=== PATIENT | female | born 1965 | race Caucasian/White ===

== ENCOUNTER 2017-04-17 17:57 | Emergency (ER) | payer OTHER ==
[~2017-04-17] VITALS: Ht 165.1 cm; Wt 80.0 kg
[~2017-04-17 17:57] MED LIST: FISH OIL OR; LORTAB5 PO; MULTI VIT OR; TYLENOL325 MG OR
[2017-04-17 18:39] LABS: HEMATOCRIT 39.8 % (37.0-47.0); MEAN CORPUSCULAR HGB 29.5 pG CALC (26.0-32.0); MEAN CORPUSCULAR HGB CONC 35.2 g/L CALC (32.0-36.0); RED BLOOD COUNT 4.74 mill/uL (4.20-5.60); RED CELL DISTRI WIDTH 12.8 % (11.5-15.5)
[2017-04-17 18:51] LABS: ALBUMIN 4.5 g/dL (3.2-5.0); ALKALINE PHOSPHATASE 98 u/l (38-126); ANION GAP 17 (6-22 (CALC)); BILIRUBIN, TOTAL 1.3 mg/dL (0.0-1.4); BUN 15 mg/dL (7-17); BUN/CREATININE RATIO 18 (12-20 (CALC)); CALCIUM 9.7 mg/dL (8.4-10.2); CARBON DIOXIDE 20 mmol/l (22-30); CHLORIDE 98 mmol/l (95-108); CREATININE 0.9 mg/dL (0.5-1.0); ETHYL ALCOHOL 0 mg/dl (0-30); GFR > 60 ML/MIN (>=60 (CALC)); GFR FOR AFR.AMER. > 60 ML/MIN (>=60 (CALC)); GLUCOSE 109 mg/dL (65-105); POTASSIUM 3.6 mmol/l (3.5-5.1); SGOT/AST 26 u/l (14-36); SGPT/ALT 37 u/l (9-52); SODIUM 132 mmol/l (137-146); TOTAL PROTEIN 7.7 g/dL (6.3-8.2)
[2017-04-17 19:03] LABS: IMMATURE GRANULOCYTES 0.2 % (0.0-1.0); MYOGLOBIN 53 ng/mL (0 - 62); NEUT# 4.43 thou/uL (2.00-7.15)
[2017-04-17 20:40] LABS: URINE BILIRUBIN - DIPSTICK NEGATIVE (NEGATIVE); URINE BLOOD DIPSTICK NEGATIVE (NEGATIVE); URINE CLARITY CLEAR; URINE COLOR YELLOW; URINE GLUCOSE - DIPSTICK NEGATIVE (NEGATIVE); URINE KETONE NEGATIVE (NEGATIVE); URINE LEUK ESTERASE NEGATIVE (NEGATIVE); URINE NITRITE - DIPSTICK NEGATIVE (Negative); URINE PH 5.5 (4.5-8.0); URINE PROTEIN - DIPSTICK NEGATIVE (NEG-TRACE); URINE SPECIFIC GRAVITY <=1.005; URINE UROBILINOGEN - DIPSTICK 0.2 E.U./dL (0.2)
[2017-04-17 20:43] LABS: BARBITURATES NEGATIVE (NEGATIVE); COCAINE NEGATIVE (NEGATIVE); METHADONE NEGATIVE (NEGATIVE); OXCYCODONE NEGATIVE (NEGATIVE); TETRAHYDROCANNABIONOL NEGATIVE (NEGATIVE); TRICYLIC ANTIDEPRESSANTS NEGATIVE (NEGATIVE)
[2017-04-17 23:00] VITALS: BP 110/64
== END 2017-04-17 23:10 | disposition home or self-care (01) | DRG 149 ==
LOC: ED 17:57
PROVIDERS: Emergency Medicine
DX: R42 Dizziness and giddiness (principal); F11.10 Opioid abuse, uncomplicated; R53.1 Weakness

== ENCOUNTER 2017-05-30 17:44 | Emergency (ER) | payer OTHER ==
[~2017-05-30] VITALS: Ht 165.1 cm; Wt 90.9 kg
[2017-05-30 18:47] LABS: PROTHROMBIN TIME 10.5 SECONDS (9.0-12.5)
[2017-05-30 18:51] LABS: ALBUMIN 4.3 g/dL (3.2-5.0); ALKALINE PHOSPHATASE 127 u/l (38-126); ANION GAP 15 (6-22 (CALC)); BILIRUBIN, TOTAL 1.1 mg/dL (0.0-1.4); BUN 8 mg/dL (7-17); BUN/CREATININE RATIO 10 (12-20 (CALC)); CALCIUM 9.3 mg/dL (8.4-10.2); CARBON DIOXIDE 22 mmol/l (22-30); CHLORIDE 100 mmol/l (95-108); CREATININE 0.8 mg/dL (0.5-1.0); GFR > 60 ML/MIN (>=60 (CALC)); GFR FOR AFR.AMER. > 60 ML/MIN (>=60 (CALC)); GLUCOSE 106 mg/dL (65-105); POTASSIUM 3.8 mmol/l (3.5-5.1); SGOT/AST 51 u/l (14-36); SGPT/ALT 40 u/l (9-52); SODIUM 133 mmol/l (137-146); TOTAL PROTEIN 7.8 g/dL (6.3-8.2)
[2017-05-30 18:59] LABS: HEMATOCRIT 36.4 % (37.0-47.0); HEMOGLOBIN 12.3 g/dl (12.0-16.0); IMMATURE GRANULOCYTES 0.6 % (0.0-1.0); MEAN CELL VOLUME 87.3 fL CALC (80.0-100.0); MEAN CORPUSCULAR HGB 29.5 pG CALC (26.0-32.0); MEAN CORPUSCULAR HGB CONC 33.8 g/L CALC (32.0-36.0); NEUT# 1.32 thou/uL (2.00-7.15); RED BLOOD COUNT 4.17 mill/uL (4.20-5.60); RED CELL DISTRI WIDTH 13.2 % (11.5-15.5)
[2017-05-30 19:02] LABS: ETHYL ALCOHOL 0 mg/dl (0-30); MYOGLOBIN 28 ng/mL (0 - 62)
[2017-05-30 19:09] LABS: URINE BILIRUBIN - DIPSTICK NEGATIVE (NEGATIVE); URINE BLOOD DIPSTICK TRACE-INTACT (NEGATIVE); URINE COLOR YELLOW; URINE GLUCOSE - DIPSTICK NEGATIVE (NEGATIVE); URINE KETONE NEGATIVE (NEGATIVE); URINE LEUK ESTERASE NEGATIVE (NEGATIVE); URINE NITRITE - DIPSTICK NEGATIVE (Negative); URINE PROTEIN - DIPSTICK NEGATIVE (NEG-TRACE); URINE UROBILINOGEN - DIPSTICK 0.2 E.U./dL (0.2)
[2017-05-30 19:11] LABS: URINE CLARITY CLEAR
[2017-05-30 19:12] LABS: BARBITURATES NEGATIVE (NEGATIVE); COCAINE NEGATIVE (NEGATIVE); METHADONE NEGATIVE (NEGATIVE); OXCYCODONE POSITIVE (NEGATIVE); TETRAHYDROCANNABIONOL POSITIVE (NEGATIVE); TRICYLIC ANTIDEPRESSANTS NEGATIVE (NEGATIVE)
[2017-05-30 21:28] VITALS: BP 118/62
--- NOTE | 2017-06-03 10:21 | NUR ---
Called patient and discussed preliminary blood culture resultes; one set growing gram neg emerita. Pt states she is feeling fine, no signs/symptoms of infections. Denies fever, malaise, dizziness. She also states she has appointment with PCP on sunday06/05/17. Advised to return to ED if she feels she is having any problems.
== END 2017-05-30 21:29 | disposition left against medical advice (07) | DRG 948 ==
LOC: ED 17:44
PROVIDERS: Emergency Medicine
DX: R41.82 Altered mental status, unspecified (principal); D61.818 Other pancytopenia; B96.89 Other specified bacterial agents as the cause of diseases classified elsewhere; Z91.19 Patient's noncompliance with other medical treatment and regimen; R51 Headache; R42 Dizziness and giddiness; F11.90 Opioid use, unspecified, uncomplicated; F12.90 Cannabis use, unspecified, uncomplicated; F15.90 Other stimulant use, unspecified, uncomplicated

== ENCOUNTER 2018-01-14 10:11 | Emergency (ER) | payer SELFPAY ==
[~2018-01-14] VITALS: Ht 160 cm; Wt 77.0 kg
[2018-01-14] MEDS ORDERED: VOLTAREN1%GEL TOP (10:32)
[2018-01-14] MEDS ORDERED: MOTRIN400 MG PO (10:32)
[2018-01-14] MEDS ORDERED: ASPERCREME LIDOCA41 TOP (10:32)
[2018-01-14 11:32] VITALS: BP 147/96
== END 2018-01-14 12:35 | disposition home or self-care (01) | DRG 563 ==
LOC: ED 10:11
DX: S39.012A Strain of muscle, fascia and tendon of lower back, initial encounter (principal); Y93.89 Activity, other specified; Y92.009 Unspecified place in unspecified non-institutional (private) residence as the place of occurrence of the external cause

== ENCOUNTER 2018-02-24 16:44 | Emergency (ER) | payer MEDICAID ==
[~2018-02-24] VITALS: Ht 160 cm; Wt 80.0 kg
[~2018-02-24 16:44] MED LIST changes: +ASPERCREME LIDOCA41 TOP; +MOTRIN400 MG PO; +VOLTAREN1%GEL TOP
[2018-02-24 17:40] LABS: HEMOGLOBIN 12.1 g/dl (12.0-16.0); IMMATURE GRANULOCYTES 0.3 % (0.0-5.0); MEAN CELL VOLUME 83.3 fL CALC (80.0-100.0); MEAN CORPUSCULAR HGB CONC 33.6 g/L CALC (32.0-36.0); NEUT# 3.84 thou/uL (2.00-7.15); RED BLOOD COUNT 4.32 mill/uL (4.20-5.60); RED CELL DISTRI WIDTH 14.2 % (11.5-15.5)
[2018-02-24 17:51] LABS: BUN 16 mg/dL (7-17); BUN/CREATININE RATIO 30 (12-20 (CALC)); CARBON DIOXIDE 28 mmol/l (22-30); CHLORIDE 102 mmol/l (95-108); CREATININE 0.5 mg/dL (0.5-1.0); GFR > 60 ML/MIN (>=60 (CALC)); GFR FOR AFR.AMER. > 60 ML/MIN (>=60 (CALC)); POTASSIUM 4.1 mmol/l (3.5-5.1)
[2018-02-24 17:55] LABS: ANION GAP 14 (6-22 (CALC)); SODIUM 140 mmol/l (137-146)
[2018-02-24 22:45] VITALS: BP 141/79
== END 2018-02-24 22:45 | disposition short-term general hospital (02) ==
LOC: ED 16:44
PROVIDERS: Family Medicine
DX: M54.6 Pain in thoracic spine (principal); R07.9 Chest pain, unspecified; R11.0 Nausea; F17.210 Nicotine dependence, cigarettes, uncomplicated

== ENCOUNTER 2018-11-23 04:34 | Observation (INO) | payer OTHER ==
[~2018-11-23] VITALS: Ht 160 cm; Wt 87.7 kg
[2018-11-23] VITALS (10 sets, daily range): BP systolic 87–136; BP diastolic 42–85
[2018-11-23 05:11] LABS: MEAN CORPUSCULAR HGB 29.6 pG CALC (26.0-32.0); MEAN CORPUSCULAR HGB CONC 33.2 g/L CALC (32.0-36.0); RED BLOOD COUNT 4.77 mill/uL (4.20-5.60); RED CELL DISTRI WIDTH 12.5 % (11.5-15.5)
[2018-11-23 05:14] LABS: URINE BLOOD DIPSTICK NEGATIVE (NEGATIVE); URINE COLOR YELLOW; URINE GLUCOSE - DIPSTICK NEGATIVE (NEGATIVE); URINE KETONE 15 mg/dL (NEGATIVE); URINE LEUK ESTERASE NEGATIVE (NEGATIVE); URINE NITRITE - DIPSTICK NEGATIVE (Negative); URINE PROTEIN - DIPSTICK NEGATIVE (NEG-TRACE); URINE SPECIFIC GRAVITY >=1.030; URINE UROBILINOGEN - DIPSTICK 0.2 E.U./dL (0.2)
[2018-11-23 05:28] LABS: URINE BILIRUBIN - DIPSTICK NEGATIVE (NEGATIVE)
[2018-11-23 05:34] LABS: HEMATOCRIT 42.5 % (37.0-47.0); HEMOGLOBIN 14.1 g/dl (12.0-16.0); IMMATURE GRANULOCYTES 0.4 % (0.0-5.0); MEAN CELL VOLUME 89.1 fL CALC (80.0-100.0); NEUT# 4.87 thou/uL (2.00-7.15)
[2018-11-23 05:38] LABS: BARBITURATES NEGATIVE (NEGATIVE); COCAINE NEGATIVE (NEGATIVE); METHADONE NEGATIVE (NEGATIVE); TETRAHYDROCANNABIONOL POSITIVE (NEGATIVE); TRICYLIC ANTIDEPRESSANTS POSITIVE (NEGATIVE)
[2018-11-23 05:39] LABS: OXCYCODONE POSITIVE (NEGATIVE)
[2018-11-23 05:51] LABS: ALKALINE PHOSPHATASE 144 u/l (38-126); BILIRUBIN, TOTAL 0.7 mg/dL (0.0-1.4); BUN 20 mg/dL (7-17); BUN/CREATININE RATIO 22 (12-20 (CALC)); CHLORIDE 107 mmol/l (95-108); CREATININE 0.9 mg/dL (0.5-1.0); ETHYL ALCOHOL 0 mg/dl (0-30); GFR > 60 ML/MIN (>=60 (CALC)); GFR FOR AFR.AMER. > 60 ML/MIN (>=60 (CALC)); POTASSIUM 3.4 mmol/l (3.5-5.1); SGOT/AST 34 u/l (14-36); SODIUM 144 mmol/l (137-146); TOTAL PROTEIN 8.6 g/dL (6.3-8.2)
[2018-11-23 05:55] LABS: ANION GAP 18 (6-22 (CALC))
[2018-11-23 05:56] LABS: ALBUMIN 5.3 g/dL (3.2-5.0); CARBON DIOXIDE 22 mmol/l (22-30)
[2018-11-23 06:03] LABS: MYOGLOBIN 117 ng/mL (0 - 62)
[2018-11-24] VITALS: BP 115/70
[2018-11-24 02:00] VITALS: BP 111/71
[2018-11-24 04:00] VITALS: BP 91/52
[2018-11-24 05:13] LABS: HEMATOCRIT 39.9 % (37.0-47.0); HEMOGLOBIN 13.2 g/dl (12.0-16.0); IMMATURE GRANULOCYTES 0.4 % (0.0-5.0); MEAN CELL VOLUME 89.3 fL CALC (80.0-100.0); MEAN CORPUSCULAR HGB 29.5 pG CALC (26.0-32.0); MEAN CORPUSCULAR HGB CONC 33.1 g/L CALC (32.0-36.0); NEUT# 2.2 thou/uL (2.00-7.15); RED BLOOD COUNT 4.47 mill/uL (4.20-5.60); RED CELL DISTRI WIDTH 12.8 % (11.5-15.5)
[2018-11-24 05:39] LABS: ALBUMIN 4.4 g/dL (3.2-5.0); ALKALINE PHOSPHATASE 119 u/l (38-126); AMYLASE 46 u/l (30-110); ANION GAP 14 (6-22 (CALC)); BILIRUBIN, TOTAL 0.5 mg/dL (0.0-1.4); BUN 15 mg/dL (7-17); BUN/CREATININE RATIO 22 (12-20 (CALC)); CARBON DIOXIDE 21 mmol/l (22-30); CHLORIDE 113 mmol/l (95-108); CREATININE 0.7 mg/dL (0.5-1.0); GFR > 60 ML/MIN (>=60 (CALC)); GFR FOR AFR.AMER. > 60 ML/MIN (>=60 (CALC)); LIPASE 85 u/l (23-300); MAGNESIUM 2.4 mg/dL (1.6-2.3); POTASSIUM 3.7 mmol/l (3.5-5.1); SGOT/AST 27 u/l (14-36); SODIUM 144 mmol/l (137-146); TOTAL PROTEIN 7.2 g/dL (6.3-8.2)
[2018-11-24 08:11] VITALS: BP 116/57
[2018-11-24] MEDS ORDERED: DOXYCYCL HYC100 MG PO (11:06)
== END 2018-11-24 11:35 | disposition home or self-care (01) ==
LOC: ED 04:34 → ED-I 06:45 → ED 06:58 → ICU 06:59
PROVIDERS: Emergency Medicine; ADMIT Internal Medicine Nephrology; ATTEND Internal Medicine Nephrology
DX: T40.2X1A Poisoning by other opioids, accidental (unintentional), initial encounter (principal); T43.011A Poisoning by tricyclic antidepressants, accidental (unintentional), initial encounter; T43.621A Poisoning by amphetamines, accidental (unintentional), initial encounter; T40.901A Poisoning by unspecified psychodysleptics [hallucinogens], accidental (unintentional), initial encounter; T40.7X1A Poisoning by cannabis (derivatives), accidental (unintentional), initial encounter; F19.10 Other psychoactive substance abuse, uncomplicated; I10 Essential (primary) hypertension; M54.9 Dorsalgia, unspecified; G89.29 Other chronic pain; J20.9 Acute bronchitis, unspecified; I95.9 Hypotension, unspecified; F41.1 Generalized anxiety disorder; F17.210 Nicotine dependence, cigarettes, uncomplicated

== ENCOUNTER 2019-03-05 01:13 | Emergency (ER) | payer OTHER ==
[~2019-03-05] VITALS: Ht 160 cm; Wt 90.0 kg
[~2019-03-05 01:13] MED LIST changes: +DOXYCYCL HYC100 MG PO
[2019-03-05] MEDS ORDERED: PRAVASTATIN20 MG PO (01:30)
[2019-03-05] MEDS ORDERED: AMITRIPTYLIN25 MG PO (01:30)
[2019-03-05] MEDS ORDERED: BUPROPION HCL150 M2 PO (01:31)
[2019-03-05] MEDS ORDERED: CETIRIZINE10 MG PO (01:31)
[2019-03-05] MEDS ORDERED: AMLODIPINE BESYL5 MG PO (01:32)
[2019-03-05] MEDS ORDERED: TRAZODONE50 MG PO (01:33)
[2019-03-05] MEDS ORDERED: TOPIRAMATE50 MG PO (01:33)
[2019-03-05] MEDS ORDERED: GABAPENTIN100 MG PO (01:34)
[2019-03-05 02:08] LABS: HEMOGLOBIN 11.4 g/dl (12.0-16.0); MEAN CORPUSCULAR HGB 27.6 pG CALC (26.0-32.0); MEAN CORPUSCULAR HGB CONC 33.6 g/L CALC (32.0-36.0); RED BLOOD COUNT 4.13 mill/uL (4.20-5.60); RED CELL DISTRI WIDTH 12.6 % (11.5-15.5)
[2019-03-05 02:08] LABS: URINE BLOOD DIPSTICK TRACE-INTACT (NEGATIVE); URINE COLOR YELLOW; URINE GLUCOSE - DIPSTICK NEGATIVE (NEGATIVE); URINE KETONE NEGATIVE (NEGATIVE); URINE LEUK ESTERASE TRACE (NEGATIVE); URINE PROTEIN - DIPSTICK 100 mg/dL (NEG-TRACE); URINE SPECIFIC GRAVITY 1.015
[2019-03-05 02:17] LABS: URINE BILIRUBIN - DIPSTICK NEGATIVE (NEGATIVE); URINE NITRITE - DIPSTICK POSITIVE (Negative)
[2019-03-05 02:20] LABS: COCAINE NEGATIVE (NEGATIVE)
[2019-03-05 02:21] LABS: METHADONE NEGATIVE (NEGATIVE); TETRAHYDROCANNABIONOL POSITIVE (NEGATIVE); TRICYLIC ANTIDEPRESSANTS POSITIVE (NEGATIVE)
[2019-03-05 02:22] LABS: BARBITURATES NEGATIVE (NEGATIVE); OXCYCODONE POSITIVE (NEGATIVE)
[2019-03-05 02:32] LABS: URINE BACTERIA MODERATE hpf; URINE SQUAMOUS EPITHELIAL CELL FEW EPI/hpf (0-FEW)
[2019-03-05 02:35] LABS: BUN 28 mg/dL (7-17); BUN/CREATININE RATIO 37 (12-20 (CALC)); CARBON DIOXIDE 24 mmol/l (22-30); CREATININE 0.7 mg/dL (0.5-1.0); GFR > 60 ML/MIN (>=60 (CALC)); GFR FOR AFR.AMER. > 60 ML/MIN (>=60 (CALC)); POTASSIUM 3.6 mmol/l (3.5-5.1); TOTAL PROTEIN 6.6 g/dL (6.3-8.2)
[2019-03-05 02:39] LABS: ALBUMIN 2.9 g/dL (3.2-5.0); ALKALINE PHOSPHATASE 354 u/l (38-126); ANION GAP 15 (6-22 (CALC)); BILIRUBIN, TOTAL 1.1 mg/dL (0.0-1.4); CHLORIDE 91 mmol/l (95-108); SGOT/AST 78 u/l (14-36); SODIUM 126 mmol/l (137-146)
[2019-03-05 02:46] LABS: MYOGLOBIN 174 ng/mL (0 - 62)
[2019-03-05 02:55] LABS: HEMATOCRIT 33.9 % (37.0-47.0); IMMATURE GRANULOCYTES 1.4 % (0.0-5.0); MEAN CELL VOLUME 82.1 fL CALC (80.0-100.0); NEUT# 6.23 thou/uL (2.00-7.15)
[2019-03-05 07:27] VITALS: BP 107/64
--- NOTE | 2019-03-06 07:17 | NUR ---
PRELIMINARY CULTURE RESULTS BOTH SETS GROWING GRAM (+) COCCI CALLED TO NATY URIAS AT [facility], WHO REPORTS [facility] HAS ALSO HAD THE SAME RESULTS. NO FOLLOW UP IS NEEDED AT THIS TIME.
== END 2019-03-05 07:27 | disposition short-term general hospital (02) ==
LOC: ED 01:13
PROVIDERS: Emergency Medicine
DX: J85.2 Abscess of lung without pneumonia (principal); M40.294 Other kyphosis, thoracic region; A41.01 Sepsis due to Methicillin susceptible Staphylococcus aureus; B95.61 Methicillin susceptible Staphylococcus aureus infection as the cause of diseases classified elsewhere; R00.0 Tachycardia, unspecified; I95.9 Hypotension, unspecified; R50.9 Fever, unspecified; F17.210 Nicotine dependence, cigarettes, uncomplicated; M54.5 Low back pain

== ENCOUNTER 2019-05-20 09:21 | Emergency (ER) | payer OTHER ==
[~2019-05-20] VITALS: Ht 154.9 cm; Wt 82.0 kg
[~2019-05-20 09:21] MED LIST changes: +AMITRIPTYLIN25 MG PO; +AMLODIPINE BESYL5 MG PO; +BUPROPION HCL150 M2 PO; +CETIRIZINE10 MG PO; +GABAPENTIN100 MG PO; +PRAVASTATIN20 MG PO; +TOPIRAMATE50 MG PO; +TRAZODONE50 MG PO
[2019-05-20 10:35] LABS: HEMATOCRIT 31.1 % (37.0-47.0); IMMATURE GRANULOCYTES 0.7 % (0.0-5.0); MEAN CELL VOLUME 81.8 fL CALC (80.0-100.0); MEAN CORPUSCULAR HGB 23.2 pG CALC (26.0-32.0); MEAN CORPUSCULAR HGB CONC 28.3 g/L CALC (32.0-36.0); NEUT# 10.06 thou/uL (2.00-7.15); RED BLOOD COUNT 3.8 mill/uL (4.20-5.60); RED CELL DISTRI WIDTH 17.8 % (11.5-15.5)
[2019-05-20 10:47] LABS: ALBUMIN 3.5 g/dL (3.2-5.0); ALKALINE PHOSPHATASE 167 u/l (38-126); ANION GAP 17 (6-22 (CALC)); BILIRUBIN, TOTAL 0.7 mg/dL (0.0-1.4); BUN 18 mg/dL (7-17); BUN/CREATININE RATIO 40 (12-20 (CALC)); CARBON DIOXIDE 23 mmol/l (22-30); CHLORIDE 103 mmol/l (95-108); CREATININE 0.5 mg/dL (0.5-1.0); GFR > 60 ML/MIN (>=60 (CALC)); GFR FOR AFR.AMER. > 60 ML/MIN (>=60 (CALC)); LIPASE < 10 u/l (23-300); POTASSIUM 3.9 mmol/l (3.5-5.1); SGOT/AST 20 u/l (14-36); SODIUM 139 mmol/l (137-146); TOTAL PROTEIN 7.7 g/dL (6.3-8.2)
[2019-05-20 10:55] LABS: HEMOGLOBIN 8.8 g/dl (12.0-16.0)
[2019-05-20 12:01] LABS: INTERNATIONAL NORMALIZED RATIO 1.2 RATIO (0.7-1.3); PROTHROMBIN TIME 12.9 SECONDS (9.0-12.5)
[2019-05-20 13:53] VITALS: BP 149/65
--- NOTE | 2019-05-21 08:08 | NUR ---
Preliminary blood culture results growing gram positive cocci in both sets called to Sahara @[facility]. Will fax final results to [facility] tomorrow to [phone].
--- NOTE | 2019-05-23 11:02 | NUR ---
FAXED BLOOD CULTURE RESULTS TO NATY DE LA O AT [facility].
== END 2019-05-20 14:07 | disposition short-term general hospital (02) ==
LOC: ED 09:21
PROVIDERS: Family Medicine
DX: I50.9 Heart failure, unspecified (principal); J18.9 Pneumonia, unspecified organism; F17.200 Nicotine dependence, unspecified, uncomplicated; Z95.1 Presence of aortocoronary bypass graft
CPT/HCPCS: Q9966

== ENCOUNTER 2019-09-12 | Inpatient (IN) | payer OTHER ==
[2019-09-12] VITALS (25 sets, daily range): BP systolic 82–133; BP diastolic 52–84
[~2019-09-12] MED LIST changes: +ALL DAY10 MG PO; +BACLOFEN20 MG PO; +DICLOFENAC50 MG PO; +GABAPENTIN400 M2 PO; +LASIX 80 MG TAB80 MG PO; +PERCOCET1 TA4 PO; +POTASSIUM99 MG PO
--- NOTE | 2019-09-12 03:35 | NUR ---
PATIENT TO ROOM 12 VIA EMS STRETCHER. PATIENT EYES CLOSED, HOLLERING OUT, WHEN ASKED HER NAME SHE CAN ANSWER, UNABLE TO SAY BIRTHDAY. PATIENT UNABLE TO STATE ANY COMPLAINTS OF PAIN, DRUG USE, OR EVENTS LEADING TO HER ER VISIT. PATIENT UNDRESSED INTO A GOWN. PLACED ON MONITOR. AWAITING MD LANGLEY.
[2019-09-12 04:11] LABS: URINE BILIRUBIN - DIPSTICK NEGATIVE (NEGATIVE); URINE BLOOD DIPSTICK MODERATE (NEGATIVE); URINE COLOR YELLOW; URINE GLUCOSE - DIPSTICK NEGATIVE (NEGATIVE); URINE KETONE TRACE mg/dL (NEGATIVE); URINE LEUK ESTERASE NEGATIVE (NEGATIVE); URINE NITRITE - DIPSTICK NEGATIVE (Negative); URINE PROTEIN - DIPSTICK 30 mg/dL (NEG-TRACE); URINE SPECIFIC GRAVITY 1.025
[2019-09-12 04:18] LABS: HEMATOCRIT 32.5 % (37.0-47.0); HEMOGLOBIN 10.7 g/dl (12.0-16.0); MEAN CELL VOLUME 79.3 fL CALC (80.0-100.0); MEAN CORPUSCULAR HGB 26.1 pG CALC (26.0-32.0); MEAN CORPUSCULAR HGB CONC 32.9 g/L CALC (32.0-36.0); NEUT# 3.75 thou/uL (2.00-7.15); RED BLOOD COUNT 4.1 mill/uL (4.20-5.60); RED CELL DISTRI WIDTH 15.9 % (11.5-15.5)
[2019-09-12 04:19] LABS: BARBITURATES NEGATIVE (NEGATIVE); COCAINE NEGATIVE (NEGATIVE); METHADONE NEGATIVE (NEGATIVE); TRICYLIC ANTIDEPRESSANTS NEGATIVE (NEGATIVE)
[2019-09-12 04:20] LABS: OXCYCODONE POSITIVE (NEGATIVE); TETRAHYDROCANNABIONOL POSITIVE (NEGATIVE)
[2019-09-12 04:23] LABS: ALBUMIN 4.2 g/dL (3.2-5.0); ALKALINE PHOSPHATASE 197 u/l (38-126); ANION GAP 14 (6-22 (CALC)); BUN 15 mg/dL (7-17); BUN/CREATININE RATIO 30 (12-20 (CALC)); CARBON DIOXIDE 19 mmol/l (22-30); CHLORIDE 107 mmol/l (95-108); CREATININE 0.5 mg/dL (0.5-1.0); GFR > 60 ML/MIN (>=60 (CALC)); GFR FOR AFR.AMER. > 60 ML/MIN (>=60 (CALC)); POTASSIUM 3.4 mmol/l (3.5-5.1); SODIUM 136 mmol/l (137-146); TOTAL PROTEIN 7.9 g/dL (6.3-8.2)
[2019-09-12 04:24] LABS: URINE BACTERIA MODERATE hpf; URINE EPITHELIAL CELLS FEW EPI/hpf (0-FEW)
[2019-09-12 04:29] LABS: BILIRUBIN, TOTAL 1.1 mg/dL (0.0-1.4); SGOT/AST 59 u/l (14-36)
--- NOTE | 2019-09-12 04:30 | NUR ---
ATTEMPTED TO OBTAIN BRAIN CT, PT IS UNCOOPERATIVE AND IS YELLING, SPITTING AND KICKING. TECH UNABLE TO OBTAIN SCAN AT THIS TIME. PT RECEIVED VERSED 3MG IV, PT HAS NO RESPONSE MEDICATION AT THIS TIME. Diamond, NOTIFIED.
--- NOTE | 2019-09-12 05:46 | NUR ---
PT CONT TO YELL AND SCREAM INCOHERANTLY, MEDICATION IS NOT EFFECTIVE AT THIS TIME. PT CONT TO LIE SUPINE, BREATHING LABORED O2 SAT IS 97% ON RA. CONT TO MONITOR.
--- NOTE | 2019-09-12 07:10 | NUR ---
REPORT GIVEN TO DAY NURSE. PT IS RESTING SUPINE, O2 SAT IS 97 ON RA, BREATHING COARSE AND LABORED. PT CONT TO MOAN LOUDLY AND RESIST CARE. M.D. NOTIFIED OF IV INFILTRATE, WILL PUT IN CENTRAL LINE.
--- NOTE | 2019-09-12 07:10 | NUR ---
REPORT FROM NATY REARDON; ATTEMPTIMG IV ACCESS AT THIS TIME; MONITORING DEVICES IN PLACE; VSS; PT MOANING LOUDLY AND NOT FOLLOWING SIMPLE COMMANDS; SAFETY PRECAUTIONS IN PLACE; WILL CONTINUE TO MONITOR
--- NOTE | 2019-09-12 08:10 | NUR ---
DR VILLARREAL AT BEDSIDE TO ASSESS PT; UNABLE TO FOLLOW SIMPLE COMMANDS; RT AT BEDSIDE FOR INTUBATION @0825 20 MG ETOMIDATE GIVEN @0825 100MG ROCURONIUM GIVEN BY DR VILLARREAL @0826 7.5 ET TUBE PLACED VIA GLIDASCOPE BY DR VILLARREAL, POSITIVE CO2 DETECTOR PLACEMENT; @0828 16 F OG TUBE PLACED VERIFIED WITH AUSCULATION SECURED TO ET TUBE; PROPOFOL DRIP INITIATED PER STANDING ORDER @0840 TRIPPLE LUMEN CENTRAL LINE PLACED TO RIJ; @04 CRX TO VERIFY PLACEMENT
--- NOTE | 2019-09-12 09:09 | NUR ---
PT REMAINS OFF THE UNIT IN THE ER.
--- NOTE | 2019-09-12 09:10 | NUR ---
PT RESTING ON STRETCHER; TOLERATING MECHANICAL VENTILATION WELL; PROPOFOL INFUSING NG FOR SAFETY; BILATERAL SOFT WRIST RESTRAINTS APPLIED FOR ET TUBE SAFETY; OG TO LIS; VSS; WILL CONTINUE TO MONITOR
--- NOTE | 2019-09-12 10:00 | NUR ---
PT RESTING ON STRETCHER; TOLERATING MECHANICAL VENTILATION WELL; PROPOFOL INFUSING PER STANDING ORDER; BILATERAL SOFT WRIST RESTRAINTS IN PLACE FOR SAFETY; VSS; TURNER TO GRAVITY; WILL CONTINUE TO MONITOR
--- NOTE | 2019-09-12 10:55 | NUR ---
ADJUSTED VENT SETTINGS. PEEP INCREASED TO 5, FIO2 DECREASED TO 40%. PT BEING TRANSFERED TO CT AT THIS TIME. AMBU BAG WITH RT CLYDE AND NATY PADILLA
--- NOTE | 2019-09-12 11:00 | NUR ---
PT TO RADIOLOGY AT THIS TIME WITH NURSE AND RT; PT TOLERATED WELL; VSS;
--- NOTE | 2019-09-12 11:50 | NUR ---
PROPOFOL DECREASED TO 50MCG/KG/MIN, INITATED LEVOPHED FOR BP 74/42.
--- NOTE | 2019-09-12 11:56 | NUR ---
OMI MOSQUERA & LINDA MOREAU NOTIFIED OF ELEVATED TROP. PT STILL NOT IN ICU.
--- NOTE | 2019-09-12 12:40 | NUR ---
Admission Note Report Given to: NATY MUNOZ Transported by: Wheelchair X Stretcher Transported with: X Nurse Transporter X Patent IV X O2 X Children'S Counselor Location: X ICU MS2
--- NOTE | 2019-09-12 12:44 | NUR ---
PT ARRIVED TO ICU2 BY STRETCHER ON & TELE WITH ER STAFF & RT.
--- NOTE | 2019-09-12 13:44 | NUR ---
DR BARROS SPOKE WITH DAUGHTER, MASSIEL ASCENCIO, BY PHONE TO GATHER PTS MEDICAL HISTORY. PAUL GAVE VERBAL CONSENT FOR MEDICAL RECORDS RELEASE FROM [facility].
--- NOTE | 2019-09-12 18:00 | NUR ---
PT HAS HAD NO CHANGE IN STATUS SINCE ARRIVAL FROM ER. SHE REMAINS INTUBATED, PROPOFOL AT 60 ML/HR, NO EVIDENCE OF DISTRESS, NO EVIDENCE OF DISTRESS.
--- NOTE | 2019-09-12 19:51 | NUR ---
REPORT GIVEN BY ALEXANDER ALFONSO. PATIENT VENTED: O2 30%, PEEP 5.0, R 16. BILATERAL WRIST RESTRAINTS IN PLACE. TURNER DRAING CEALR, YELLOW URINE. RIJ INFUSING LEVO, PROPOFOL, AND IV FLUIDS. OJ PRESENT ON LIS. FALL PRECATUIONS IN PLACE.
--- NOTE | 2019-09-12 21:00 | NUR ---
DIPIRVAN TUBING CHANGED
--- NOTE | 2019-09-12 21:37 | NUR ---
NEW ORDERS GIVEN. RESTART LEVO IF MAP IS LESS THAN 65.
--- NOTE | 2019-09-12 22:07 | NUR ---
PATIENT'S MAP LESS THAN 65. LEVO RESTARTED
--- NOTE | 2019-09-12 23:56 | NUR ---
PATIENT INTABATED. RESP EVEN AND UNLABORED. NO S/S OF DISTRESS NOTED.
[2019-09-13] VITALS (35 sets, daily range): BP systolic 100–128; BP diastolic 54–83
--- NOTE | 2019-09-13 01:26 | NUR ---
TITRATED LEVO FROM 8MCG/MIN TO 4MCG/MIN. WILL CONTINE TO MONTIOR
--- NOTE | 2019-09-13 02:30 | NUR ---
COMPLETE BED BATH GIVEN BY FITNESS SALES ASSOCIATE
--- NOTE | 2019-09-13 04:00 | NUR ---
PATIENT TRYING TO PULL ET TUBE OUT. IT APPEARS THE ET TUBE HAS MOVED. STAT CXR ORDERED TO CHECK PLACEMENT.
--- NOTE | 2019-09-13 05:00 | NUR ---
PLACEMENT VERIFIED BY CXR, IT SHOWS GOOD PLACEMENT OF ET TUBE.
[2019-09-13 06:21] LABS: HEMATOCRIT 30.7 % (37.0-47.0); HEMOGLOBIN 9.9 g/dl (12.0-16.0); MEAN CELL VOLUME 81.2 fL CALC (80.0-100.0); MEAN CORPUSCULAR HGB 26.2 pG CALC (26.0-32.0); MEAN CORPUSCULAR HGB CONC 32.2 g/L CALC (32.0-36.0); RED BLOOD COUNT 3.78 mill/uL (4.20-5.60); RED CELL DISTRI WIDTH 15.6 % (11.5-15.5)
[2019-09-13 06:23] LABS: IMMATURE GRANULOCYTES 0.4 % (0.0-5.0); NEUT# 3.52 thou/uL (2.00-7.15)
[2019-09-13 06:39] LABS: ALKALINE PHOSPHATASE 140 u/l (38-126); BILIRUBIN, TOTAL 1.1 mg/dL (0.0-1.4); BUN 17 mg/dL (7-17); BUN/CREATININE RATIO 38 (12-20 (CALC)); CHLORIDE 112 mmol/l (95-108); CREATININE 0.4 mg/dL (0.5-1.0); GFR > 60 ML/MIN (>=60 (CALC)); GFR FOR AFR.AMER. > 60 ML/MIN (>=60 (CALC)); POTASSIUM 3.6 mmol/l (3.5-5.1); SGOT/AST 36 u/l (14-36); SODIUM 140 mmol/l (137-146)
[2019-09-13 06:41] LABS: ALBUMIN 2.9 g/dL (3.2-5.0); ANION GAP 9 (6-22 (CALC)); CARBON DIOXIDE 23 mmol/l (22-30)
--- NOTE | 2019-09-13 07:53 | NUR ---
PRELIMINARY BLOOD CULTURE RESULTS CALLED TO , 4 VIALS GROWING GRAM (+) COCCI, RBVO TO START VANCOMYCIN PHARMACY TO DOSE. PHARMACY WILL FOLLOW FOR FINAL C+S.
--- NOTE | 2019-09-13 07:59 | NUR ---
PT RECD ON VENT SETTINGS ON FLOW SHEET ALARMS ON AND AUDIBLE WILL ATTEMPT TO WEAN ALEXANDER
--- NOTE | 2019-09-13 10:19 | NUR ---
DEMETRI BRAGA, @BEDSIDE ASSESSING PT. PT ABLE TO OPEN EYES SPONTANEOUSLY & FOLLOW COMMANDS EX: THUMBS UP & WIGGLE TOES. PROPOFOL REMAINS AT 70 MCG/KG/MIN
--- NOTE | 2019-09-13 10:28 | NUR ---
RT CALLED TO ROOM FOR SUCTIONING.
--- NOTE | 2019-09-13 10:33 | NUR ---
RT @BEDSIDE FOR SUCTIONING. DAUGHTER, MASSIEL ASCENCIO, CALLED FOR UPDATE.
--- NOTE | 2019-09-13 10:58 | NUR ---
RT @BEDSIDE OBTAINING SPUTUM SAMPLE FROM ETT. OG CONTINUES TO DRAIN DARK BROWN SENTIMENT TO LIS. CATH TURNER DRAINING DARK GREEN URINE TO GRAVITY.
--- NOTE | 2019-09-13 11:12 | NUR ---
DISCUSSED S/S OF REACTION TO CEFEPIME WITH PHARMACY. WILL MONITOR FOR RASH.
--- NOTE | 2019-09-13 12:11 | NUR ---
ENTERED PTS ROOM, WHEN VENT ALARMED, TO FIND PT HAS REPOSITIONED HERSELF IN BED TO TURN HER HEAD LOW ENOUGHT TO REACH RESTRAINED RIGHT HAND AND DISCONNECTED THE HOSE FROM VENT. PT REPOSITIONED, RESTRAINTS REAPPLIED. PRESIDENT/GM PRODUCTION & LIVE EXPERIENCES ON UNIT AWARE OF PTS FREQUENT MOVEMENT & RASS; ALSO AWARE OF MEDICAL RECORDS FAXED FROM [facility].
--- NOTE | 2019-09-13 13:24 | NUR ---
PT CONTINUES TO MOVE AROUND BED, ATTEMPTING TO DISLODGE ETT. MD ON UNIT AWARE. WILL TITRATE PROPFOL UP TO 75; MAY NEED HARD RESTRAINTS IF BEHAVIOR CONTINUES.
--- NOTE | 2019-09-13 13:53 | NUR ---
S: FRANCE MELGAR is a 54 F who presents with acute encephalopathy, drug abuse/overdose. She has a history of osteomyelitis, chronic back, drug abuse, CABG + TOB . All medications in patient's chart were reviewed. O: VS: BP: 105/60 mmHg, P: 69 b/m, RR:21 breaths/min ,T: 98.7 W: 65.913 kg, HT: 61 inches, Scr= 0.4 mg/dl,CrCl= 94 ml/min A: Blood culture shows gram positive cocci (4 vials). P: Patient is on cefepime 2GM IV Q8H. Vancomycin ordered for pharmacy to dose. Start Vancomycin 1250 MG IV Q12H. Vancomycin trough is drawn before the 4th dose on 09/14/19 at . Vancomycin goal trough is between <15-20 mcg/ml>. Pharmacy will follow and or advise on antibiotics use as needed.
[2019-09-13 14:02] LABS: MAGNESIUM 2.3 mg/dL (1.6-2.3)
--- NOTE | 2019-09-13 17:19 | NUR ---
RT @BEDSIDE FOR DEEP SUCTIONING. FACE WASHED, PILLOW CASE CHANGED.
--- NOTE | 2019-09-13 18:10 | NUR ---
PT FOUND ATTEMPTING TO BANG HER HEAD ON TOP SIDE RAILS OF BED. PULLOWS PLACED ON SIDE OF HEAD TO PREVENT HARM FOR PT.
--- NOTE | 2019-09-13 18:30 | NUR ---
PT FOUND PULLING ON HER CATH TURNER TUBE. PT REDIRECTED. RESTRAINTS REINFORCED.
--- NOTE | 2019-09-13 20:51 | NUR ---
REPORT GIVEN BY LISA ALFONSO. PATIENT VENTED, O2 30%, PEEP 5, AND RATE 16. RESP EVEN AND UNLABORED. NO S/S OF DISTRESS NOTED. TURNER DRAINING BROWN/NASRA URINE. RIJ INFUSING MEDICATIONS. BILATERAL WRIST RESTRAINTS INTACT WITH GOOD CIRCULATION TO THE HANDS. FALL PRECATUIONS IN PLACE.
--- NOTE | 2019-09-13 21:59 | NUR ---
RT GIVING BREATHING TREATMENT
[2019-09-14] VITALS (18 sets, daily range): BP systolic 98–149; BP diastolic 41–81
--- NOTE | 2019-09-14 01:29 | NUR ---
PATIENT SEDATED AND ON VENT. RESP EVEN AND UNLABORED. NO S/S OF DISTRESS NOTED.
--- NOTE | 2019-09-14 03:47 | NUR ---
PATIENT SEDATED. RESP EVEN AND UNLABORED. NO S/S OF DISTRESS NOTED.
--- NOTE | 2019-09-14 05:49 | NUR ---
RT NOTIFIED OF CHEST X-RAY RESULTS.
--- NOTE | 2019-09-14 07:38 | NUR ---
TILA @BEDSIDE D/T PTS BEHAVIOR. WILL START WEANING PT OFF PROPOFOL THIS AM FOR POSSIBLE EXTABATION TODAY.
--- NOTE | 2019-09-14 07:38 | NUR ---
YUM[facility]OO ON HOLD UNTIL PHARMACY REVIEW AFTER TROUGH LAST NIGHT.
--- NOTE | 2019-09-14 08:10 | NUR ---
PT CLEANED OF STOOL, PARTIAL LINEN CHANGE. DUODERM PLACED ON CLOSED WOUNDS TO BUTTOCKS. NEW PHOTO TAKEN.
--- NOTE | 2019-09-14 08:24 | NUR ---
RT @BEDSIDE FOR SUCTIONING & VENT ASSESSMENT.
--- NOTE | 2019-09-14 08:27 | NUR ---
PT SHOWING MIDDLE FINGER TO STAFF. ABLE TO PICK HEAD UP OFF BED, WIGGLE TOES, SQUEEZE HANDS ON COMMAND.
--- NOTE | 2019-09-14 09:09 | NUR ---
RT @BEDSIDE TESTING PTS BREATHING.
--- NOTE | 2019-09-14 09:20 | NUR ---
RT REMOVED ETT. PT STATES SHE FEELS "OK". ADMITS TO TAKING OXYCODONE & SMOKING METH BUT DENIES TRYING TO HURT HERSELF. PT EDUCATED ON TUBES & MONITORING EQUIPMENT. PT A&O BUT NEEDED REDIRECTION WHEN PT STATED SHE WAS AT "[facility]". PT GIVEN APPLE JUICE & A PHONE TO CALL HER DAUGHTER.
--- NOTE | 2019-09-14 09:30 | NUR ---
PT EXTUBATED PER ORDERS PT RESPONDING TO VERBAL COMMANDS FVC 1000CC GOOD HEAD LIFT SITTER AT BEDSIDE ON O2 AT 2LPM NC SATS 100% B/S DECREASED W/ SCATTERED EXP WHHEZES NO STRIDOR NOTED
[2019-09-14 10:38] LABS: HEMATOCRIT 28.6 % (37.0-47.0); HEMOGLOBIN 9.1 g/dl (12.0-16.0); MEAN CELL VOLUME 81.5 fL CALC (80.0-100.0); MEAN CORPUSCULAR HGB 25.9 pG CALC (26.0-32.0); MEAN CORPUSCULAR HGB CONC 31.8 g/L CALC (32.0-36.0); RED BLOOD COUNT 3.51 mill/uL (4.20-5.60); RED CELL DISTRI WIDTH 15.4 % (11.5-15.5)
[2019-09-14 10:45] LABS: ANION GAP 9 (6-22 (CALC)); BUN 19 mg/dL (7-17); BUN/CREATININE RATIO 44 (12-20 (CALC)); CARBON DIOXIDE 24 mmol/l (22-30); CHLORIDE 113 mmol/l (95-108); CREATININE 0.4 mg/dL (0.5-1.0); GFR > 60 ML/MIN (>=60 (CALC)); GFR FOR AFR.AMER. > 60 ML/MIN (>=60 (CALC)); POTASSIUM 3.5 mmol/l (3.5-5.1); SODIUM 141 mmol/l (137-146)
--- NOTE | 2019-09-14 11:58 | NUR ---
Contacted pt's daughter Nata regarding the need of home medication history. Daughter states she will bring a copy of medication list. Moreover, daughter provided me with clinic/pharmacy # where mother picks up home medications ; clinic is closed on Sundays. Will call clinic/pharmacy tomorrow Sunday.
[2019-09-14 12:12] LABS: MAGNESIUM 2.4 mg/dL (1.6-2.3)
--- NOTE | 2019-09-14 12:25 | NUR ---
DR DENNIS @BEDSIDE, ASSESSING PT. PT BECOMING LABORED WHILE TALKING. PT BECOMING EMOTIONAL WHILE REQUESTING PAIN MEDICATIONS, STATING SHE "WILL DETOX IF SHE DOESNT TAKE IT & SHE NEEDS IT". PER , KIMBER REQUESTED FROM PHARMACY.
--- NOTE | 2019-09-14 13:22 | NUR ---
PT ASKED TO GET UP TO BSC FOR BM. REQUEST TO STAY ON BSC FOR AWHILE.
--- NOTE | 2019-09-14 14:55 | NUR ---
PT ASKING FOR MEDICATIONS FOR HER SELF-DIAGNOSED DRUG WITHDRAWAL. PT DENIES PAIN, JUST WANTS THE PAIN MEDICATION. PT GENTLY REMINDED SHE IS HERE FOR A DRUG OVERDOSE BUT SHE WOULD LIKE SOMETHING ANYWAY. NOTIFIED.
--- NOTE | 2019-09-14 15:00 | NUR ---
PT LAYING QUEITLY IN BED. NO S/S OF DISTRESS. WILL CONTINUE TO MONITOR.
--- NOTE | 2019-09-14 16:03 | NUR ---
PT LAYING QUEITLY IN BED. NO S/S OF DISTRESS. WILL CONTINUE TO MONITOR.
--- NOTE | 2019-09-14 17:33 | NUR ---
PT STATES SHE IS READY TO GO HOME. PTS DAUGHTER CALLED FOR HER & PHONE GIVEN TO PT.
--- NOTE | 2019-09-14 17:39 | NUR ---
PT STILL DENYING PAIN BUT STATES SHE NEEDS THE PAIN MEDICINE BC SHE IS TWITCHY. NO TWITCHY OBSERVED. PT GIVEN UNIT PORTABLE CORDLESS PHONE TO CALL FAMILY TO "COME STRAIGHT UP HER AND GET HER". PT REMAINS CALM. VSS. BP 113/60, HR 60, 100% ON RA, 18 RR. HOUSE SUP AWARE.
--- NOTE | 2019-09-14 17:55 | NUR ---
VICTORINO CARDOSO, @BEDSIDE DISCUSSING POC WITH PT. ALSO SPOKE WITH DAUGHTER.
--- NOTE | 2019-09-14 18:00 | NUR ---
HOUSE SUP @BEDSIDE ASSISTING WITH IV DC AND CATH TURNER REMOVAL. PT AGAIN EDUCATED ON IMPORTANCE OF ADMISSION AND DANGERS OF AMA. SON IN LAW @BEDSIDE AWARE OF DANGERS OF AMA & IMPORTANCE OF ADMISSION WELL. PT "PROMISES SHE WILL BE ALRIGHT". PT EDUCATED ON POST INTUBATION, URINARY RETENTION, & LOW PLATELET COUNT.
--- NOTE | 2019-09-14 18:10 | NUR ---
DC CENTRAL LINE REQUIRED LONGER/HARDER PRESSURE THAN USUAL. AREA DRESSED WITH 2X2 GAUZE & TAGEDERM & PT INSTRUCTED TO OBSERVE FOR BLEEDING FROM AREA. HOUSE SUP ASSISTED PT TO DRESS.
--- NOTE | 2019-09-14 18:17 | NUR ---
PT OUT THE DOOR BY WC, WITH STAFF & ALL BELONGINGS, IN STABLE CONDITION. ASSIST x2 INTO PTS SON-IN-LAW'S VEHICLE. PT THANKED STAFF FOR THE "GREAT CARE", SHE "APPRECIATED ALL OUR HELP"
== END 2019-09-14 18:17 | disposition left against medical advice (07) | DRG 917 ==
PROVIDERS: Emergency Medicine; Nurse Practitioner Family; ADMIT Internal Medicine
PROC: 02HV33Z Insertion of Infusion Device into Superior Vena Cava, Percutaneous Approach (ICD-10-PCS; principal; 2019-09-12)
PROC: 0BH17EZ Insertion of Endotracheal Airway into Trachea, Via Natural or Artificial Opening (ICD-10-PCS; 2019-09-12)
PROC: 5A1945Z Respiratory Ventilation, 24-96 Consecutive Hours (ICD-10-PCS; 2019-09-12)
DX: T43.621A Poisoning by amphetamines, accidental (unintentional), initial encounter (principal); G92 Toxic encephalopathy; J96.00 Acute respiratory failure, unspecified whether with hypoxia or hypercapnia; D61.818 Other pancytopenia; R78.81 Bacteremia; T40.2X1A Poisoning by other opioids, accidental (unintentional), initial encounter; T40.7X1A Poisoning by cannabis (derivatives), accidental (unintentional), initial encounter; F11.10 Opioid abuse, uncomplicated; F15.10 Other stimulant abuse, uncomplicated; J40 Bronchitis, not specified as acute or chronic; R79.89 Other specified abnormal findings of blood chemistry; F17.210 Nicotine dependence, cigarettes, uncomplicated; Z95.2 Presence of prosthetic heart valve; Z95.0 Presence of cardiac pacemaker; Z95.1 Presence of aortocoronary bypass graft
CPT/HCPCS: J0692; J3370; S0164

== ENCOUNTER 2019-09-22 | Emergency (ER) | payer OTHER ==
[2019-09-22 13:42] LABS: HEMOGLOBIN 9.8 g/dl (12.0-16.0); MEAN CELL VOLUME 82.9 fL CALC (80.0-100.0); MEAN CORPUSCULAR HGB 26.2 pG CALC (26.0-32.0); MEAN CORPUSCULAR HGB CONC 31.6 g/L CALC (32.0-36.0); RED BLOOD COUNT 3.74 mill/uL (4.20-5.60); RED CELL DISTRI WIDTH 16.2 % (11.5-15.5)
[2019-09-22 13:47] LABS: IMMATURE GRANULOCYTES 1.2 % (0.0-5.0); NEUT# 4.49 thou/uL (2.00-7.15)
[2019-09-22 13:53] LABS: ALBUMIN 3.2 g/dL (3.2-5.0); ALKALINE PHOSPHATASE 136 u/l (38-126); ANION GAP 13 (6-22 (CALC)); BILIRUBIN, TOTAL 1.2 mg/dL (0.0-1.4); BUN 34 mg/dL (7-17); BUN/CREATININE RATIO 36 (12-20 (CALC)); CARBON DIOXIDE 23 mmol/l (22-30); CHLORIDE 102 mmol/l (95-108); CREATININE 0.9 mg/dL (0.5-1.0); GFR > 60 ML/MIN (>=60 (CALC)); GFR FOR AFR.AMER. > 60 ML/MIN (>=60 (CALC)); POTASSIUM 2.9 mmol/l (3.5-5.1); SGOT/AST 132 u/l (14-36); SODIUM 135 mmol/l (137-146); TOTAL PROTEIN 6.5 g/dL (6.3-8.2)
--- NOTE | 2019-09-24 08:19 | NUR ---
FAXED PRELIM BLOOD CULTURE RESULTS TO [facility] NURSE HORNE [phone]
--- NOTE | 2019-09-25 15:47 | NUR ---
Called and Faxed nurse Estevez final results of blood cultures growing staph aureus at [facility] fax #[phone].
== END 2019-09-22 18:00 | disposition short-term general hospital (02) ==
PROVIDERS: Family Medicine
DX: I21.4 Non-ST elevation (NSTEMI) myocardial infarction (principal); I50.9 Heart failure, unspecified; D69.6 Thrombocytopenia, unspecified; F17.210 Nicotine dependence, cigarettes, uncomplicated
CPT/HCPCS: J0692; J3475